=== PATIENT | female | born 1970 | race Caucasian/White ===

== ENCOUNTER 2023-08-22 12:56 | Emergency (ER) | payer OTHER, MEDICAID ==
[~2023-08-22] VITALS: Ht 165.1 cm; Wt 57.0 kg
[2023-08-22 13:01] VITALS: BP 150/60; RESP 16; TEMP 99.2; O2SAT 100
[2023-08-22 13:02] VITALS: PULSE 83
[2023-08-22] MEDS ORDERED: KETOROLAC 60MG/2ML VIAL IM ONE (15:00)
[2023-08-22 15:26] LABS: HEMATOCRIT. 33.8 % (36.0-48.0); HEMOGLOBIN. 10.5 g/dL (12.0-16.0); MEAN CORPUSCULAR HEMOGLOBIN 22.4 pg (28.0-32.0); MEAN CORPUSCULAR HGB CONC 31.1 g/dL (31.0-37.0); MEAN CORPUSCULAR VOLUME 72.1 fL (81.0-99.0); RED BLOOD CELL COUNT 4.68 mill/uL (4.2-5.4); RED CELL DISTRIBUTION WIDTH 20.1 % (11.6-14.6); WHITE BLOOD COUNT 11.4 x1000/uL (4.5-11.0)
[2023-08-22 15:33] LABS: DIFFERENTIAL COMMENT 1
[2023-08-22 15:34] LABS: INDEX HEMOLYSI 1 (1-3); INDEX ICTERIC 1 (1-4); INDEX LIPEMIC 1 (1-3)
[2023-08-22 15:50] LABS: ALANINE AMINOTRANSFERASE 46 IU/L (13-61); ALBUMIN 3.9 g/dL (3.4-5.0); ASPARTATE AMINOTRANSFERASE 24 IU/L (15-37); BILIRUBIN TOTAL 0.3 mg/dL (0.1-1.0); CARBON DIOXIDE 24 mEq/L (21-32); CREATININE 0.6 mg/dL (0.6-1.3); GLUCOSE 108 mg/dL (70-105); PROTEIN TOTAL 7.9 g/dL (6.0-8.3); UREA NITROGEN BLOOD 12 mg/dL (7-21)
[2023-08-22 15:58] LABS: CHLORIDE 105 mEq/L (98-107); POTASSIUM 4.5 mEq/L (3.5-5.1); SODIUM 136 mEq/L (136-145)
[2023-08-22 16:17] LABS: PLATELET 415 x1000/uL (130-400)
[2023-08-22 16:20] LABS: HYPOCHROMASIA 1+; MICROCYTOSIS 2+; PLATELET ESTIMATE INCREASED
[2023-08-22 16:49] LABS: ERYTHROCYTE SEDIMENTATION RATE 8 mm/hr (0-30)
[2023-08-22] MEDS ORDERED: IBUP-2028 MT (17:53)
== END 2023-08-22 19:56 | disposition home or self-care (01) ==
LOC: ER 13:33
DX: M25.551 Pain in right hip (principal); D64.9 Anemia, unspecified
CPT/HCPCS: 99285; 72192; 80053; 85025; 85651; 36415; 96372; J1885

== ENCOUNTER 2024-02-13 12:29 | Inpatient (IN) | payer OTHER ==
[2024-02-13] VITALS: BP 105/45; PULSE 77; RESP 18; TEMP 96.5
[~2024-02-13] VITALS: Ht 195.6 cm; Wt 62.6 kg
[~2024-02-13 12:29] MED LIST: IBUP-2028 MT
[2024-02-13 14:49] LABS: BASOPHILS % 0.2 % (0.0-2.0); DIFFERENTIAL COMMENT 0; EOSINOPHILS % 0.2 % (0.0-5.0); HEMATOCRIT. 27.9 % (36.0-48.0); HEMOGLOBIN. 8.9 g/dL (12.0-16.0); LYMPHOCYTES % 14.4 % (20.0-50.0); MEAN CORPUSCULAR HEMOGLOBIN 23.7 pg (28.0-32.0); MEAN CORPUSCULAR HGB CONC 31.9 g/dL (31.0-37.0); MEAN CORPUSCULAR VOLUME 74.3 fL (81.0-99.0); MEAN PLATELET VOLUME 6.6 fl (7.4-10.4); MONOCYTES % 9.7 % (2.0-8.0); NEUTROPHILS % 75.5 % (40.0-76.0); PLATELET 591 x1000/uL (130-400); RED BLOOD CELL COUNT 3.75 mill/uL (4.2-5.4); RED CELL DISTRIBUTION WIDTH 17.6 % (11.6-14.6)
[2024-02-13 14:59] LABS: ALANINE AMINOTRANSFERASE 9 IU/L (10-49); ALBUMIN 4.2 g/dL (3.2-4.8); BILIRUBIN TOTAL 0.3 mg/dL (0.1-1.0); CALCIUM 8.8 mg/dL (8.7-10.4); CARBON DIOXIDE 24 mEq/L (21-32); CHLORIDE 106 mEq/L (98-107); CREATININE 0.7 mg/dL (0.6-1.0); GLUCOSE 126 mg/dL (70-105); POTASSIUM 4.2 mEq/L (3.5-5.1); PROTEIN TOTAL 7.4 g/dL (6.0-8.3); SODIUM 137 mEq/L (136-145); UREA NITROGEN BLOOD 12 mg/dL (9-23)
[2024-02-13 15:32] LABS: ASPARTATE AMINOTRANSFERASE < 8 IU/L (<34)
[2024-02-13 17:55] LABS: CLARITY URINE CLOUDY (CLEAR); COLOR URINE DARK YELLOW (YELLOW); GLUCOSE URINE NEGATIVE (NEGATIVE); KETONES URINE TRACE (NEGATIVE); LEUKOCYTE ESTERASE URINE 1+ (NEGATIVE); NITRITE URINE NEGATIVE (NEGATIVE); OCCULT BLOOD URINE 3+ (NEGATIVE); PROTEIN URINE TRACE (NEGATIVE); SPECIFIC GRAVITY URINE 1.027 (1.005-1.030); UROBILINOGEN URINE 0.2 E.U./dL (0.2-1.0)
[2024-02-13 18:12] LABS: BACTERIA URINE 1+; SQUAMOUS EPITHELIAL CELL URINE 1+ /lpf (RARE/1+)
[2024-02-13] MEDS: IOHEXOL-300 100 ML BOTTLE ONE (19:12)
[2024-02-13] MEDS ORDERED: CEFOXITIN SODIUM 1 G in DEXTROSE 5% WATER 50 ML IV SCH (20:15)
[2024-02-13] MEDS ORDERED: ONDANSETRON HCL 4MG/2ML INJ IV PRN (21:15)
[2024-02-13] MEDS ORDERED: IPRATROPIUM/ALBUTEROL 0.5-3(2.5)MG/3ML NEB HHN PRN (21:15)
[2024-02-13] MEDS ORDERED: PIPERACILLIN/TAZO 3.375G/50ML 50 ML IV SCH (22:30)
[2024-02-13] MEDS ORDERED: IOHEXOL-300 100 ML BOTTLE ONE (23:13)
[2024-02-14] VITALS: BP 105/45; PULSE 18; PULSE 77; RESP 18; TEMP 105; TEMP 96.5
[2024-02-14] MEDS: PIPERACILLIN/TAZO 3.375G/50ML 50 ML IV SCH (00:30)
[2024-02-14 01:13] VITALS: BP 105/45; PULSE 77; RESP 18; TEMP 96.5
[2024-02-14] MEDS ORDERED: GUAIFENESIN 200MG/10ML SUGAR FREE UDC PO PRN (03:00)
[2024-02-14] MEDS ORDERED: ONDANSETRON HCL 4MG/2ML INJ IV PRN (03:00)
[2024-02-14] MEDS ORDERED: ACETAMINOPHEN 325MG TABLET PO PRN (03:00)
[2024-02-14] MEDS ORDERED: CLONIDINE 0.1MG TABLET PO PRN (03:00)
[2024-02-14 03:16] LABS: HEMATOCRIT. 26.2 % (36.0-48.0); HEMOGLOBIN. 8.4 g/dL (12.0-16.0); MEAN CORPUSCULAR HEMOGLOBIN 23.3 pg (28.0-32.0); MEAN CORPUSCULAR HGB CONC 31.9 g/dL (31.0-37.0); MEAN CORPUSCULAR VOLUME 72.9 fL (81.0-99.0); MEAN PLATELET VOLUME 6.5 fl (7.4-10.4); PLATELET 500 x1000/uL (130-400); RED CELL DISTRIBUTION WIDTH 17.2 % (11.6-14.6); WHITE BLOOD COUNT 8.4 x1000/uL (4.5-11.0)
[2024-02-14] MEDS: DEXT 5%/LACTATED RINGERS 1,000 ML IV SCH (03:27)
[2024-02-14 03:40] LABS: IRON 13 ug/dL (50-170); TOTAL IRON BINDING CAPACITY 614 ug/dl (250-425)
[2024-02-14 03:51] LABS: ALANINE AMINOTRANSFERASE < 7 IU/L (10-49); ALBUMIN 3.8 g/dL (3.2-4.8); BILIRUBIN TOTAL 0.4 mg/dL (0.1-1.0); CALCIUM 8.1 mg/dL (8.7-10.4); CARBON DIOXIDE 25 mEq/L (21-32); CHLORIDE 104 mEq/L (98-107); CHOLESTEROL 158 mg/dL (<200); CREATININE 0.7 mg/dL (0.6-1.0); GLUCOSE 106 mg/dL (70-105); HDL CHOLESTEROL 31 mg/dL (>65); LDL CHOLESTEROL 104 mg/dL (5-100); POTASSIUM 3.8 mEq/L (3.5-5.1); PROTEIN TOTAL 6.1 g/dL (6.0-8.3); SODIUM 135 mEq/L (136-145); T4 FREE 1.04 ng/dL (0.89-1.76); THYROID STIMULATING HORMONE 2.33 uIU/mL (0.55-4.78); TRIGLYCERIDE 129 mg/dL (0-150); UREA NITROGEN BLOOD 8 mg/dL (9-23)
[2024-02-14 03:52] LABS: DIFFERENTIAL COMMENT 1
[2024-02-14 04:00] VITALS: BP 102/48; PULSE 62; RESP 18; TEMP 96.7
[2024-02-14 04:07] LABS: ASPARTATE AMINOTRANSFERASE < 8 IU/L (<34)
[2024-02-14 04:21] LABS: FERRITIN 29 ng/mL (10-291); FOLIC ACID (FOLATE) SERUM > 20.00 ng/mL (>5.38); VITAMIN B12 SERUM 299 pg/mL (211-911)
[2024-02-14] MEDS: PIPERACILLIN/TAZO 3.375G/50ML IV SCH (06:08)
[2024-02-14] MEDS: IRON SUCROSE COMPLEX 100 MG/5 ML ML IV SCH (08:45)
[2024-02-14] MEDS: CYANOCOBALAMIN 1000MCG TABLET PO SCH (08:48)
[2024-02-14 10:02] LABS: PARTIAL THROMBOPLASTIN TIME 28.1 sec (23.4-31.0); PROTHROMBIN TIME 11.4 sec (9.6-11.0)
[2024-02-14] MEDS ORDERED: PIPERACILLIN/TAZO 3.375G/50ML 50 ML IV SCH (14:00)
[2024-02-14 20:00] VITALS: BP 104/58; PULSE 74; RESP 18; TEMP 78.8
[2024-02-14] MEDS ORDERED: PNEUMOCOCCAL 23-VAL P-SAC VAC 0.5 ML IM ONE (21:00)
[2024-02-14] MEDS ORDERED: INFLUENZA VACCINE 05/PF 0.5 ML SYRINGE IM ONE (21:00)
[2024-02-15] VITALS: BP 114/62; PULSE 84; RESP 18; TEMP 97.7
[2024-02-15 04:00] VITALS: BP 121/72; PULSE 78; RESP 18; TEMP 97
[2024-02-15 07:01] LABS: HYPOCHROMASIA 1+; MICROCYTOSIS 1+; PLATELET ESTIMATE NORMAL
[2024-02-15 07:51] LABS: HEMATOCRIT 27.9 % (36.0-48.0); MEAN CORPUSCULAR HEMOGLOBIN 23.7 pg (28.0-32.0); MEAN CORPUSCULAR HGB CONC 32.3 g/dL (31.0-37.0); MEAN CORPUSCULAR VOLUME 73.3 fL (81.0-99.0); PLATELET 530 x1000/uL (130-400); RED CELL DISTRIBUTION WIDTH 17.2 % (11.6-14.6); WHITE BLOOD COUNT 9.8 x1000/uL (4.5-11.0)
[2024-02-15 08:00] VITALS: BP 98/45; PULSE 69; RESP 19; TEMP 98.1
[2024-02-15] MEDS: DEXT 5%/LACTATED RINGERS 1,000 ML IV SCH (08:59)
[2024-02-15] MEDS: VANCOMYCIN 1.5GM/250ML IV SCH (09:00)
[2024-02-15 10:03] LABS: ALANINE AMINOTRANSFERASE < 7 IU/L (10-49); ASPARTATE AMINOTRANSFERASE 8 IU/L (<34); BILIRUBIN TOTAL 0.4 mg/dL (0.1-1.0); CALCIUM 8.3 mg/dL (8.7-10.4); CARBON DIOXIDE 24 mEq/L (21-32); CHLORIDE 104 mEq/L (98-107); CREATININE 0.7 mg/dL (0.6-1.0); GLUCOSE 96 mg/dL (70-105); POTASSIUM 3.8 mEq/L (3.5-5.1); PROTEIN TOTAL 6.4 g/dL (6.0-8.3); SODIUM 137 mEq/L (136-145); UREA NITROGEN BLOOD 10 mg/dL (9-23)
[2024-02-15 12:00] VITALS: BP 92/50; PULSE 72; RESP 20; TEMP 98.2
[2024-02-15 20:00] VITALS: BP 108/66; PULSE 84; RESP 19; TEMP 100.6
[2024-02-15] MEDS: ACETAMINOPHEN 325MG TABLET PO PRN (21:03)
[2024-02-15] MEDS: VANCOMYCIN 1GM/200ML PMX (BAXTER) IV SCH (21:08)
[2024-02-16] VITALS: BP 97/42; PULSE 77; RESP 18; TEMP 96.9
[2024-02-16 04:00] VITALS: BP 92/44; PULSE 68; RESP 18; TEMP 97.2
[2024-02-16 08:00] VITALS: BP 114/53; PULSE 55; RESP 19; TEMP 97.7
[2024-02-16] MEDS ORDERED: ONDA8TAB13 PO (11:56)
[2024-02-16] MEDS ORDERED: PANT20TA17 PO (11:56)
[2024-02-16] MEDS ORDERED: AMOX600S39 PO (11:56)
[2024-02-16 13:16] VITALS: BP 114/53; PULSE 55; TEMP 97.7; O2SAT 98
== END 2024-02-16 14:16 | disposition home or self-care (01) | DRG 372 ==
LOC: ER 12:56 → 6EST 20:10
PROVIDERS: ADMIT Internal Medicine; ATTEND Internal Medicine
DX: K35.33 Acute appendicitis with perforation, localized peritonitis, and gangrene, with abscess (principal); N39.0 Urinary tract infection, site not specified; D25.9 Leiomyoma of uterus, unspecified; N92.0 Excessive and frequent menstruation with regular cycle; D50.0 Iron deficiency anemia secondary to blood loss (chronic); D75.839 Thrombocytosis, unspecified; Z20.822 Contact with and (suspected) exposure to COVID-19
CPT/HCPCS: 36415; 71045; 74177; 76830; 76856; 80053; 80061; 81003; 82270; 82607; 82728; 82746; 83036; 83540; 83550; 83605; 84145; 84439; 84443; 85025; 85027; 86850; 86900; 87426; 90686; 90732; 93970; 99285; J0694; J2543; J3370; J7060; J7121; Q9967

== ENCOUNTER 2024-08-18 12:54 | Inpatient (IN) | payer OTHER ==
[~2024-08-18] VITALS: Ht 160 cm; Wt 55.8 kg
[~2024-08-18 12:54] MED LIST changes: +AMOX600S39 PO; +ONDA-241 PO; +PANT20TA17 PO
[2024-08-18 14:37] LABS: CLARITY URINE CLEAR (CLEAR); COLOR URINE YELLOW (YELLOW); GLUCOSE URINE NEGATIVE (NEGATIVE); KETONES URINE NEGATIVE (NEGATIVE); LEUKOCYTE ESTERASE URINE NEGATIVE (NEGATIVE); NITRITE URINE NEGATIVE (NEGATIVE); OCCULT BLOOD URINE 2+ (NEGATIVE); PH URINE 6.5 (4.5-8.0); PROTEIN URINE NEGATIVE (NEGATIVE); SPECIFIC GRAVITY URINE 1.018 (1.005-1.030); UROBILINOGEN URINE 0.2 E.U./dL (0.2-1.0)
[2024-08-18 14:50] LABS: BACTERIA URINE FEW; RBC URINE 0-2 /hpf (0-2); SQUAMOUS EPITHELIAL CELL URINE 1+ /lpf (RARE/1+); YEAST URINE NONE SEEN
[2024-08-18 15:00] LABS: BASOPHILS % 0.1 % (0.0-2.0); HEMATOCRIT. 36.4 % (36.0-48.0); HEMOGLOBIN. 11.4 g/dL (12.0-16.0); LYMPHOCYTES % 20.9 % (20.0-50.0); MEAN CORPUSCULAR HEMOGLOBIN 25.4 pg (28.0-32.0); MEAN CORPUSCULAR HGB CONC 31.3 g/dL (31.0-37.0); MEAN CORPUSCULAR VOLUME 81.1 fL (81.0-99.0); MEAN PLATELET VOLUME 7.3 fl (7.4-10.4); MONOCYTES % 7.3 % (2.0-8.0); NEUTROPHILS % 70.7 % (40.0-76.0); PLATELET 408 x1000/uL (130-400); RED BLOOD CELL COUNT 4.48 mill/uL (4.2-5.4); RED CELL DISTRIBUTION WIDTH 20.5 % (11.6-14.6); WHITE BLOOD COUNT 10.7 x1000/uL (4.5-11.0)
[2024-08-18 15:03] LABS: CHLORIDE 104 mEq/L (98-107); POTASSIUM 4.2 mEq/L (3.5-5.1); SODIUM 136 mEq/L (136-145)
[2024-08-18 15:04] LABS: CALCIUM 9.8 mg/dL (8.7-10.4); CARBON DIOXIDE 26 mEq/L (21-32)
[2024-08-18 15:09] LABS: CREATININE 0.7 mg/dL (0.6-1.0); GLUCOSE 95 mg/dL (70-105); UREA NITROGEN BLOOD 18 mg/dL (9-23)
[2024-08-18 15:10] LABS: PARTIAL THROMBOPLASTIN TIME 31.3 sec (23.4-31.0); PROTHROMBIN TIME 11.2 sec (9.6-11.0)
[2024-08-18 15:11] LABS: ALANINE AMINOTRANSFERASE 12 IU/L (10-49); ALBUMIN 4.5 g/dL (3.2-4.8); ASPARTATE AMINOTRANSFERASE 13 IU/L (<34); BILIRUBIN TOTAL 0.3 mg/dL (0.1-1.0); PROTEIN TOTAL 7.3 g/dL (6.0-8.3)
[2024-08-18 15:12] LABS: ALANINE AMINOTRANSFERASE 13 IU/L (10-49); ALBUMIN 4.4 g/dL (3.2-4.8); ASPARTATE AMINOTRANSFERASE 13 IU/L (<34); BILIRUBIN TOTAL 0.3 mg/dL (0.1-1.0); PROTEIN TOTAL 7.3 g/dL (6.0-8.3)
[2024-08-18 15:18] LABS: BILIRUBIN DIRECT < 0.1 mg/dL (<=3.0)
[2024-08-18] MEDS: IOHEXOL-300 100 ML BOTTLE ONE (16:59)
[2024-08-18] MEDS: PIPERACILLIN/TAZO 3.375G/50ML 50 ML IV ONE (17:30)
[2024-08-18] MEDS ORDERED: ONDANSETRON HCL 4MG/2ML INJ IV PRN (20:00)
[2024-08-18] MEDS ORDERED: DOCUSATE SODIUM 100MG CAPSULE PO PRN (20:00)
[2024-08-18] MEDS ORDERED: ACETAMINOPHEN 325MG TABLET PO PRN (20:00)
[2024-08-18] MEDS ORDERED: IPRATROPIUM/ALBUTEROL 0.5-3(2.5)MG/3ML NEB HHN PRN (20:00)
[2024-08-18] MEDS ORDERED: KETOROLAC 15MG/ML VIAL IV PRN (20:30)
[2024-08-18 21:07] LABS: PHOSPHORUS 3.3 mg/dL (2.5-4.9)
[2024-08-18] MEDS: SODIUM CHLORIDE 0.45% 1,000 ML IV SCH (21:09)
[2024-08-18] MEDS: PIPERACILLIN/TAZO 3.375G/50ML 50 ML IV SCH (23:00)
[2024-08-19] MEDS: PANTOPRAZOLE 40MG DR TABLET PO SCH (07:58)
[2024-08-19 08:02] LABS: BASOPHILS % 0.1 % (0.0-2.0); EOSINOPHILS % 1.2 % (0.0-5.0); HEMATOCRIT. 31.8 % (36.0-48.0); HEMOGLOBIN. 10.3 g/dL (12.0-16.0); LYMPHOCYTES % 18.5 % (20.0-50.0); MEAN CORPUSCULAR HEMOGLOBIN 26.1 pg (28.0-32.0); MEAN CORPUSCULAR HGB CONC 32.3 g/dL (31.0-37.0); MEAN CORPUSCULAR VOLUME 80.9 fL (81.0-99.0); MEAN PLATELET VOLUME 7.2 fl (7.4-10.4); MONOCYTES % 6.9 % (2.0-8.0); NEUTROPHILS % 73.3 % (40.0-76.0); PLATELET 377 x1000/uL (130-400); RED BLOOD CELL COUNT 3.93 mill/uL (4.2-5.4); RED CELL DISTRIBUTION WIDTH 20.7 % (11.6-14.6); WHITE BLOOD COUNT 8.8 x1000/uL (4.5-11.0)
[2024-08-19 08:14] LABS: CHLORIDE 107 mEq/L (98-107); POTASSIUM 4.4 mEq/L (3.5-5.1); SODIUM 138 mEq/L (136-145)
[2024-08-19 08:15] LABS: CARBON DIOXIDE 24 mEq/L (21-32)
[2024-08-19 08:17] LABS: CREATINE KINASE MB FRACTION < 0.5 ng/mL (0.5-3.6)
[2024-08-19 08:18] LABS: CREATINE KINASE 21 IU/L (34-145)
[2024-08-19 08:20] LABS: CREATININE 0.8 mg/dL (0.6-1.0); GLUCOSE 94 mg/dL (70-105); TRIGLYCERIDE 96 mg/dL (0-150)
[2024-08-19 08:21] LABS: LDL CHOLESTEROL 105 mg/dL (5-100); UREA NITROGEN BLOOD 13 mg/dL (9-23)
[2024-08-19 08:22] LABS: CHOLESTEROL 159 mg/dL (<200); HDL CHOLESTEROL 41 mg/dL (>65); THYROID STIMULATING HORMONE 2.96 uIU/mL (0.55-4.78)
[2024-08-19 08:23] LABS: T4 FREE 1.03 ng/dL (0.89-1.76)
[2024-08-19 08:24] LABS: TROPONIN I HIGH SENSITIVITY < 4 ng/L (3.0-34)
[2024-08-19 08:28] LABS: ALANINE AMINOTRANSFERASE 11 IU/L (10-49); ALBUMIN 3.8 g/dL (3.2-4.8); ASPARTATE AMINOTRANSFERASE 13 IU/L (<34); BILIRUBIN DIRECT 0.1 mg/dL (<=3.0); PROTEIN TOTAL 6.3 g/dL (6.0-8.3)
[2024-08-19 08:32] LABS: BILIRUBIN TOTAL 0.6 mg/dL (0.1-1.0)
[2024-08-19] MEDS ORDERED: DIATR MEGLU/DIATRIZOATE SOLN 120ML ONE (09:23)
[2024-08-19] MEDS: FERROUS SULFATE 325MG TABLET PO SCH (11:34)
[2024-08-19 12:44] LABS: CREATINE KINASE MB FRACTION < 0.5 ng/mL (0.5-3.6)
[2024-08-19 12:45] LABS: CREATINE KINASE 22 IU/L (34-145)
[2024-08-19 12:59] LABS: TROPONIN I HIGH SENSITIVITY < 4 ng/L (3.0-34)
[2024-08-19 13:40] VITALS: BP 111/70; PULSE 70; RESP 18; TEMP 36.89184; O2SAT 99
[2024-08-19] MEDS ORDERED: FERR-63 PO (14:20)
[2024-08-19] MEDS ORDERED: FLUT16SP15 INH (14:20)
[2024-08-19] MEDS ORDERED: DICL75TA5 PO (14:20)
[2024-08-19 15:42] LABS: *AMPHETAMINES SCREEN URINE NEGATIVE (NEGATIVE); *BARBITURATES SCREEN URINE NEGATIVE (NEGATIVE); *BENZODIAZEPINES SCREEN URINE NEGATIVE (NEGATIVE); *COCAINE SCREEN URINE NEGATIVE (NEGATIVE); METHADONE URINE SCREEN NEGATIVE (NEGATIVE)
[2024-08-19 15:43] LABS: CANNABINOID URINE SCREEN NEGATIVE (NEGATIVE); ECSTASY MDMA SCREEN URINE NEGATIVE (NEGATIVE); OPIATES URINE SCREEN NEGATIVE (NEGATIVE); PHENCYCLIDINE URINE SCREEN NEGATIVE (NEGATIVE)
[2024-08-19 16:00] VITALS: BP 91/53; PULSE 64; RESP 18; RESP 64; TEMP 36.72516; O2SAT 18; O2SAT 98
[2024-08-19 16:42] VITALS: BP 91/53; PULSE 64; RESP 20; TEMP 36.7516
[2024-08-19 20:00] VITALS: BP 102/71; PULSE 71; RESP 20; TEMP 36.61404; O2SAT 98
[2024-08-20] VITALS: BP 95/53; PULSE 68; RESP 18; TEMP 36.3918; O2SAT 100
[2024-08-20 04:00] VITALS: BP 96/52; PULSE 69; RESP 16; TEMP 37.28076; O2SAT 97
[2024-08-20 07:35] LABS: CHLORIDE 107 mEq/L (98-107); POTASSIUM 4.1 mEq/L (3.5-5.1); SODIUM 136 mEq/L (136-145)
[2024-08-20 07:36] LABS: CALCIUM 8.8 mg/dL (8.7-10.4); CARBON DIOXIDE 24 mEq/L (21-32)
[2024-08-20 07:37] LABS: BASOPHILS % 0.1 % (0.0-2.0); EOSINOPHILS % 0.8 % (0.0-5.0); HEMATOCRIT. 31.6 % (36.0-48.0); HEMOGLOBIN. 10.2 g/dL (12.0-16.0); LYMPHOCYTES % 13.5 % (20.0-50.0); MEAN CORPUSCULAR HEMOGLOBIN 26.1 pg (28.0-32.0); MEAN CORPUSCULAR HGB CONC 32.3 g/dL (31.0-37.0); MEAN CORPUSCULAR VOLUME 80.6 fL (81.0-99.0); MEAN PLATELET VOLUME 7.1 fl (7.4-10.4); MONOCYTES % 8.2 % (2.0-8.0); NEUTROPHILS % 77.4 % (40.0-76.0); PLATELET 371 x1000/uL (130-400); RED BLOOD CELL COUNT 3.92 mill/uL (4.2-5.4); RED CELL DISTRIBUTION WIDTH 20.5 % (11.6-14.6); WHITE BLOOD COUNT 10.7 x1000/uL (4.5-11.0)
[2024-08-20 07:41] LABS: CREATININE 0.7 mg/dL (0.6-1.0)
[2024-08-20 07:42] LABS: GLUCOSE 105 mg/dL (70-105); UREA NITROGEN BLOOD 11 mg/dL (9-23)
[2024-08-20 07:43] LABS: ALANINE AMINOTRANSFERASE 10 IU/L (10-49); ALBUMIN 3.8 g/dL (3.2-4.8); ASPARTATE AMINOTRANSFERASE 8 IU/L (<34)
[2024-08-20 07:44] LABS: BILIRUBIN DIRECT 0.1 mg/dL (<=3.0); BILIRUBIN TOTAL 0.5 mg/dL (0.1-1.0)
[2024-08-20 07:45] LABS: PROTEIN TOTAL 6.3 g/dL (6.0-8.3)
[2024-08-20 08:00] VITALS: BP 100/56; PULSE 68; RESP 18; TEMP 36.61404; O2SAT 100
[2024-08-20 12:00] VITALS: BP 96/61; PULSE 75; RESP 18; TEMP 36.44736; O2SAT 99
[2024-08-20 16:00] VITALS: BP 97/65; PULSE 78; RESP 18; TEMP 36.44736; O2SAT 99
[2024-08-20 20:00] VITALS: BP 104/61; PULSE 74; RESP 20; TEMP 36.72516; O2SAT 98
[2024-08-21] VITALS: BP 96/49; PULSE 66; RESP 19; TEMP 36.61404; O2SAT 98
[2024-08-21 04:00] VITALS: BP 93/40; PULSE 58; RESP 18; TEMP 36.55848; O2SAT 97
[2024-08-21 08:00] VITALS: BP 100/52; PULSE 71; RESP 20; TEMP 36.6696; TEMP 36.66960; O2SAT 98
[2024-08-21] MEDS ORDERED: METR-167 PO (09:33)
[2024-08-21] MEDS ORDERED: IBUP-2029 PO (09:33)
[2024-08-21] MEDS ORDERED: CIPR500T5 PO (09:33)
[2024-08-21] MEDS ORDERED: IBUP-2030 MT (09:33)
[2024-08-21] MEDS ORDERED: PANT20TA17 PO (09:35)
[2024-08-21] MEDS ORDERED: ONDA-241 PO (09:35)
[2024-08-21] MEDS ORDERED: AMOX1TAB15 MT (11:29)
[2024-08-21] MEDS ORDERED: IBUP-2028 MT (11:29)
[2024-08-21 12:18] VITALS: BP 110/74; PULSE 72; TEMP 98.5; O2SAT 98
== END 2024-08-21 15:08 | disposition home or self-care (01) | DRG 757 ==
LOC: ER 12:54 → MICUSO 18:30 → EDBEDREQTM 18:32 → EDBEDREQ 18:32 → EDBEDREQSVC 08-19 11:52 → 8WST 08-19 14:12
PROVIDERS: ADMIT Internal Medicine; ATTEND Internal Medicine
DX: N73.9 Female pelvic inflammatory disease, unspecified (principal); K65.9 Peritonitis, unspecified; N39.0 Urinary tract infection, site not specified; D25.9 Leiomyoma of uterus, unspecified; D64.9 Anemia, unspecified; D75.839 Thrombocytosis, unspecified; K76.89 Other specified diseases of liver; J45.909 Unspecified asthma, uncomplicated; Z80.49 Family history of malignant neoplasm of other genital organs; Z87.19 Personal history of other diseases of the digestive system; Z98.891 History of uterine scar from previous surgery
CPT/HCPCS: 36415; 71045; 74176; 74177; 76830; 76856; 80048; 80053; 80061; 80076; 80305; 81003; 82550; 82553; 83036; 83605; 83735; 84100; 84145; 84439; 84443; 84484; 85025; 86850; 86900; 87077; 93005; 99285; J2543; Q9963; Q9967